=== PATIENT | male | born 1965 | race Caucasian/White ===

== ENCOUNTER 2020-06-24 00:58 | Emergency (ER) | payer OTHER ==
[~2020-06-24 00:58] MED LIST: VENTOLIN HFA IN18 GM INH; VOLTAREN **OUT75 MG PO; ZOCOR5 MG PO
[2020-06-24] MEDS ORDERED: ULTRAM50 MG PB (02:26)
== END 2020-06-24 02:50 | disposition home or self-care (01) ==
LOC: FER 00:58
DX: S43.402A Unspecified sprain of left shoulder joint, initial encounter (principal); I10 Essential (primary) hypertension; J45.909 Unspecified asthma, uncomplicated; F17.200 Nicotine dependence, unspecified, uncomplicated; W19.XXXA Unspecified fall, initial encounter; Y92.89 Other specified places as the place of occurrence of the external cause; Y99.0 Civilian activity done for income or pay
CPT/HCPCS: 73030